=== PATIENT | male | born 1975 | race African-American/Black ===

== ENCOUNTER 2018-08-02 20:01 | Emergency (ER) | payer BC ==
[~2018-08-02] VITALS: Ht 180.3 cm; Wt 227.7 kg
[2018-08-02 20:19] VITALS: BP_SYST 147
[2018-08-02] MEDS ORDERED: KETOROLAC TROMETHAMINE 30 MG VIAL IVP ONE (21:00)
[2018-08-02 22:00] LABS: CALCIUM 8.9 mg/dL (8.4-11.0); CHLORIDE 103 mmol/L (98-107); CREATININE 1.31 mg/dL (0.55-1.30); GLUCOSE 106 mg/dL (70-99); PROTHROMBIN TIME 9.8 SECS (9.5-12.5); SODIUM SERUM 136 mmol/L (136-145); UREA NITROGEN, BLOOD 13 mg/dL (8-21)
[2018-08-02 22:00] LABS: BILIRUBIN,URINE NEGATIVE (NEGATIVE); BLOOD, URINE NEGATIVE (NEGATIVE); CLARITY/URINE CLEAR (CLEAR); COLOR,URINE YELLOW (YELLOW); GLUCOSE,URINE NEGATIVE (NEGATIVE); KETONES,URINE NEGATIVE (NEGATIVE); LEUKOCYTE ESTERASE ,URINE NEGATIVE (NEGATIVE); NITRITE, URINE NEGATIVE (NEGATIVE); PH,URINE 5.5 (5.0-8.0); PROTEIN URINE NEGATIVE (NEGATIVE); UROBILINOGEN,URINE 0.2 (0.2-1.0)
[2018-08-02 22:02] LABS: ANION GAP < 3 (5-15); GFR AFRICAN AMERICAN 76 mL/min (>90)
[2018-08-02 22:06] LABS: ALANINE AMINOTRANSFERASE 26 U/L (12-78); ASPARTATE AMINOTRANSFERASE 16 U/L (10-37); LIPASE 139 U/L (73-393); TOTAL BILIRUBIN 0.2 mg/dL (0.0-1.0)
[2018-08-02 22:16] LABS: BASOPHILS # (AUTO) 0.3 K/uL (0.0-0.2); BASOPHILS % (AUTO) 2.1 % (0.0-2.0); EOSINOPHILS # (AUTO) 0.3 K/uL (0.0-0.4); EOSINOPHILS % (AUTO) 2.6 % (0.0-4.0); HEMATOCRIT 43.7 % (36-54); HEMOGLOBIN 14.4 g/dL (14.0-18.0); LYMPHOCYTES % (AUTO) 23.9 % (20.5-51.5); MEAN CORPUSCULAR HEMOGLOBIN 27 pg (27-31); MEAN CORPUSCULAR HGB CONC 33 % (32-36); MEAN CORPUSCULAR VOLUME 84 fL (79.0-98.0); MONOCYTES # (AUTO) 1.2 K/uL (0.0-1.0); MONOCYTES % (AUTO) 9.2 % (1.7-9.3); NEUTROPHILS # (AUTO) 7.8 K/uL (1.8-7.7); NEUTROPHILS % (AUTO) 62.2 % (40.0-70.0); PLATELET COUNT (AUTO) 486 K/uL (130-430); RED BLOOD CELL COUNT(AUTO) 5.24 MIL/uL (4.2-6.2); RED CELL DISTRIBUTION WIDTH 14.1 % (9.0-15.0); WHITE BLOOD COUNT (AUTO) 12.6 K/uL (4.8-10.8)
[2018-08-02 22:25] VITALS: BP_SYST 141
[2018-08-02 22:30] LABS: CKMB RELATIVE INDEX 0.1 (0.0-2.9); CREATINE KINASE MB 0.4 ng/mL (0-3.6)
== END 2018-08-02 22:25 | disposition home or self-care (01) ==
LOC: SED 20:01
DX: N28.9 Disorder of kidney and ureter, unspecified (principal); M79.605 Pain in left leg; E66.9 Obesity, unspecified; R03.0 Elevated blood-pressure reading, without diagnosis of hypertension; Z68.45 Body mass index [BMI] 70 or greater, adult
CPT/HCPCS: 36415; 71045; 80053; 81003; 82550; 82553; 83690; 85025; 85379; 85610; 85730; 93005; 93971; 96374; 99285; J1885

== ENCOUNTER 2019-08-30 18:34 | Emergency (ER) | payer BC, OTHER ==
[~2019-08-30] VITALS: Ht 180.3 cm; Wt 230.0 kg
[2019-08-30 18:51] VITALS: BP_SYST 136
--- NOTE | 2019-08-30 18:58 | NUR ---
TPatient triaged and placed in waiting room. VSS and patient appears in no acute distress at this time. Accompanied by self, awaiting available bed, and MD notified of need for MSE.
--- NOTE | 2019-08-30 19:17 | NUR ---
Patient to ER bed 04 TO GOWN for evaluation. Side rails up. Report given to Reese CHENG.
--- NOTE | 2019-08-30 19:19 | NUR ---
Patient ambulatory and complains of aching pain on the left knee to left toes rated 7/10 since 08/30 at 1200. Patient states that he did not take any medication for the pain today. The patient denies shortness of breath, nausea, vomiting, or fevers. No other complains/injuries per patient or noted.
--- NOTE | 2019-08-30 19:20 | NUR ---
Alie cui in EDM - 08/30/19 at 2211 by [email or web address] ELOISA Guo at bedside examining patient.
[2019-08-30] MEDS ORDERED: MORPHINE 2 MG/ML INJ. SYRINGE IVP ONE ×2 (19:45→21:15)
[2019-08-30] MEDS ORDERED: ONDANSETRON HCL 4 MG/2 ML VIAL IVP ONE (19:45)
[2019-08-30 20:29] LABS: BASOPHILS % (AUTO) 0.3 % (0.0-2.0); EOSINOPHILS # (AUTO) 0.2 K/uL (0.0-0.4); EOSINOPHILS % (AUTO) 1.6 % (0.0-4.0); HEMATOCRIT 42.5 % (36-54); HEMOGLOBIN 14.2 g/dL (14.0-18.0); LYMPHOCYTES # (AUTO) 2.8 K/uL (1.0-5.5); LYMPHOCYTES % (AUTO) 27.9 % (20.5-51.5); MEAN CORPUSCULAR HEMOGLOBIN 28 pg (27-31); MEAN CORPUSCULAR HGB CONC 34 % (32-36); MEAN CORPUSCULAR VOLUME 84 fL (79.0-98.0); MONOCYTES # (AUTO) 1.2 K/uL (0.0-1.0); MONOCYTES % (AUTO) 11.9 % (1.7-9.3); NEUTROPHILS # (AUTO) 5.7 K/uL (1.8-7.7); NEUTROPHILS % (AUTO) 58.3 % (40.0-70.0); PLATELET COUNT (AUTO) 440 K/uL (130-430); RED BLOOD CELL COUNT(AUTO) 5.07 MIL/uL (4.2-6.2); RED CELL DISTRIBUTION WIDTH 15.5 % (9.0-15.0); WHITE BLOOD COUNT (AUTO) 9.8 K/uL (4.8-10.8)
[2019-08-30 20:33] LABS: CALCIUM 8.4 mg/dL (8.4-11.0); CREATININE 1.16 mg/dL (0.55-1.30); POTASSIUM 3.7 mmol/L (3.5-5.1)
[2019-08-30 20:37] LABS: PROTHROMBIN TIME 10.4 SECS (9.5-12.5)
[2019-08-30 20:38] LABS: ALBUMIN 3.1 g/dL (3.4-4.8); TOTAL BILIRUBIN 0.3 mg/dL (0.0-1.0)
[2019-08-30 21:03] LABS: CKMB RELATIVE INDEX 0.3 (0.0-2.9); CREATINE KINASE MB 1.2 ng/mL (0-3.6)
--- NOTE | 2019-08-30 21:37 | NUR ---
ER Dr. Barber at bedside examining patient.
--- NOTE | 2019-08-30 21:51 | NUR ---
Patient given written and verbal discharge instructions and verbalizes understanding. ER MD discussed with patient the results and treatment provided. Patient in stable condition. ID arm band removed. IV catheter removed intact and dressing applied, no active bleeding. Rx of [place] and Zofran given. Patient educated on pain management and to follow up with PMD. Pain Scale 0. Opportunity for questions provided and answered. Medication side effect fact sheet provided.
[2019-08-30 21:58] VITALS: BP_SYST 135
== END 2019-08-30 21:51 | disposition home or self-care (01) ==
LOC: SED 18:34
DX: M79.605 Pain in left leg (principal); I10 Essential (primary) hypertension
CPT/HCPCS: 36415; 80053; 82550; 82553; 85025; 85610; 85730; 93971; 96374; 96375; 96376; 99284; J2270; J2405

== ENCOUNTER 2019-09-23 12:09 | Emergency (ER) | payer OTHER ==
[~2019-09-23] VITALS: Ht 180.3 cm; Wt 225.9 kg
[2019-09-23 12:28] VITALS: BP_SYST 154
--- NOTE | 2019-09-23 12:57 | NUR ---
Patient to ER bed 8 to gown for evaluation. Side rails up.
--- NOTE | 2019-09-23 12:58 | NUR ---
Patient is awake, alert, and oriented. Patient is complaining of pain and swollen throat since last . He went to [place] urgent [facility] and was told to come in for evaluation. Patient presents with throat pain 03/20, took 1000mg ibuprofen 2-3 hours ago. Tonsils are swollen with white spots on evaluation.
--- NOTE | 2019-09-23 13:12 | NUR ---
ER Dr. Jean Baptiste at bedside examining patient.
[2019-09-23] MEDS ORDERED: ceFAZolin SODIUM 1 GM VIAL IM ONE (13:30)
[2019-09-23] MEDS ORDERED: IBUPROFEN 800 MG TABLET PO ONE (13:30)
[2019-09-23 13:43] VITALS: BP_SYST 138
--- NOTE | 2019-09-23 13:43 | NUR ---
Patient given written and verbal discharge instructions and verbalizes understanding. ER MD discussed with patient the results and treatment provided. Patient in stable condition. ID arm band removed. Rx of augmentin, motrin given. Patient educated on pain management and to follow up with PMD. Pain Scale 8/10, Dr. Jean Baptiste is aware. Opportunity for questions provided and answered. Medication side effect fact sheet provided.
[2019-09-23] MEDS ORDERED: LIDOCAINE 1%, 20 ML MDV 20 ML ONE (13:46)
== END 2019-09-23 13:43 | disposition home or self-care (01) ==
LOC: SED 12:09
DX: J02.0 Streptococcal pharyngitis (principal); I10 Essential (primary) hypertension; E11.9 Type 2 diabetes mellitus without complications
CPT/HCPCS: 96372; 99283; J0690; J2001

== ENCOUNTER 2020-02-16 13:14 | Emergency (ER) | payer OTHER ==
[~2020-02-16] VITALS: Ht 180.3 cm; Wt 229.1 kg
[2020-02-16 13:23] VITALS: BP_SYST 142
--- NOTE | 2020-02-16 13:30 | NUR ---
PATIENT TO ER #6 AND PLACED ON [facility] [employer] DR[employer], SAO2 AND ABP
--- NOTE | 2020-02-16 13:38 | NUR ---
Pt c/o bilateral swelling of the feet and SOB during activity x 3 days. Pt AxOx4, Denies any pain.
--- NOTE | 2020-02-16 13:50 | NUR ---
EKG performed at by SKYLAR Mcneil. Dr. Mccarthy given copy of EKG for review.
[2020-02-16 14:08] LABS: BASOPHILS # (AUTO) 0.4 K/uL (0.0-0.2); BASOPHILS % (AUTO) 3.8 % (0.0-2.0); EOSINOPHILS # (AUTO) 0.3 K/uL (0.0-0.4); EOSINOPHILS % (AUTO) 2.8 % (0.0-4.0); HEMATOCRIT 44.7 % (36-54); HEMOGLOBIN 14.6 g/dL (14.0-18.0); LYMPHOCYTES # (AUTO) 2.2 K/uL (1.0-5.5); LYMPHOCYTES % (AUTO) 21.2 % (20.5-51.5); MEAN CORPUSCULAR HEMOGLOBIN 27 pg (27-31); MEAN CORPUSCULAR HGB CONC 33 % (32-36); MEAN CORPUSCULAR VOLUME 82 fL (79.0-98.0); MONOCYTES # (AUTO) 0.7 K/uL (0.0-1.0); MONOCYTES % (AUTO) 6.4 % (1.7-9.3); NEUTROPHILS # (AUTO) 6.7 K/uL (1.8-7.7); NEUTROPHILS % (AUTO) 65.8 % (40.0-70.0); PLATELET COUNT (AUTO) 455 K/uL (130-430); RED BLOOD CELL COUNT(AUTO) 5.43 MIL/uL (4.2-6.2); RED CELL DISTRIBUTION WIDTH 15.3 % (9.0-15.0); WHITE BLOOD COUNT (AUTO) 10.2 K/uL (4.8-10.8)
[2020-02-16 14:09] LABS: CALCIUM 8.9 mg/dL (8.4-11.0); CREATININE 1.32 mg/dL (0.55-1.30); POTASSIUM 3.4 mmol/L (3.5-5.1)
[2020-02-16 14:15] LABS: ALBUMIN 2.9 g/dL (3.4-4.8); TOTAL BILIRUBIN 0.3 mg/dL (0.0-1.0)
--- NOTE | 2020-02-16 15:04 | NUR ---
Patient given written and verbal discharge instructions and verbalizes understanding. ER Dr. Mccarthy discussed with patient the results and treatment provided. Patient in stable condition. ID arm band removed. Patient educated and to follow up with PMD. Opportunity for questions provided and answered. Medication side effect fact sheet provided.
[2020-02-16 15:08] VITALS: BP_SYST 141
== END 2020-02-16 15:04 | disposition home or self-care (01) ==
LOC: SED 13:14
DX: R60.0 Localized edema (principal); I10 Essential (primary) hypertension
CPT/HCPCS: 36415; 71045; 80053; 83880; 84484; 85025; 85379; 93005; 99285

== ENCOUNTER 2020-08-17 15:01 | Emergency (ER) | payer OTHER ==
[~2020-08-17] VITALS: Ht 182.9 cm; Wt 249.5 kg
[2020-08-17 15:05] VITALS: BP_SYST 132
[2020-08-17 16:17] LABS: BASOPHILS # (AUTO) 0.1 K/uL (0.0-0.2); BASOPHILS % (AUTO) 0.7 % (0.0-2.0); EOSINOPHILS # (AUTO) 0.3 K/uL (0.0-0.4); HEMATOCRIT 44.2 % (36-54); HEMOGLOBIN 14.4 g/dL (14.0-18.0); LYMPHOCYTES # (AUTO) 2.5 K/uL (1.0-5.5); LYMPHOCYTES % (AUTO) 27.7 % (20.5-51.5); MEAN CORPUSCULAR HEMOGLOBIN 27 pg (27-31); MEAN CORPUSCULAR HGB CONC 33 % (32-36); MEAN CORPUSCULAR VOLUME 84 fL (79.0-98.0); MONOCYTES # (AUTO) 1.1 K/uL (0.0-1.0); MONOCYTES % (AUTO) 12.4 % (1.7-9.3); NEUTROPHILS # (AUTO) 5.1 K/uL (1.8-7.7); NEUTROPHILS % (AUTO) 56.2 % (40.0-70.0); PLATELET COUNT (AUTO) 447 K/uL (130-430); RED BLOOD CELL COUNT(AUTO) 5.29 MIL/uL (4.2-6.2); RED CELL DISTRIBUTION WIDTH 15.1 % (9.0-15.0)
[2020-08-17 16:40] LABS: PROTHROMBIN TIME 10.4 SECS (9.5-12.5)
[2020-08-17 16:46] LABS: ANION GAP 8 (5-15); CALCIUM 8.3 mg/dL (8.4-11.0); CHLORIDE 103 mmol/L (98-107); CREATININE 1.09 mg/dL (0.55-1.30); GLUCOSE 94 mg/dL (70-99); POTASSIUM 3.6 mmol/L (3.5-5.1); SODIUM SERUM 140 mmol/L (136-145); UREA NITROGEN, BLOOD 12 mg/dL (8-21)
[2020-08-17 16:53] LABS: ALANINE AMINOTRANSFERASE 27 U/L (12-78); ALBUMIN 3.1 g/dL (3.4-4.8); ASPARTATE AMINOTRANSFERASE 23 U/L (10-37); TOTAL BILIRUBIN 0.2 mg/dL (0.0-1.0)
[2020-08-17 16:58] LABS: GFR AFRICAN AMERICAN 94 mL/min (>90)
[2020-08-17 17:27] LABS: CKMB RELATIVE INDEX 0.3 (0.0-2.9); CREATINE KINASE MB 1.2 ng/mL (0-3.6)
[2020-08-17 17:43] VITALS: BP_SYST 132
== END 2020-08-17 17:42 | disposition home or self-care (01) ==
LOC: SED 15:01
DX: R06.02 Shortness of breath (principal); I10 Essential (primary) hypertension; G47.30 Sleep apnea, unspecified
CPT/HCPCS: 36415; 71045; 80053; 82550-TC; 82553-TC; 83880; 84484; 85025; 85379; 85610-TC; 85730-TC; 93005; 99285